=== PATIENT | female | born 1965 | race Caucasian/White ===

== ENCOUNTER 2016-04-05 19:16 | Emergency (ER) | payer OTHER ==
[~2016-04-05] VITALS: Ht 154.9 cm; Wt 94.6 kg
[~2016-04-05 19:16] MED LIST: AMBIEN10 MG PO; ATIVAN0.5 MG PO; BACTRIM,SEPT1 TABLET PO; BUSPAR10 MG PO; BUSPAR5 MG PO; CYMBALTA30 MG PO; CYMBALTA60 MG PO; FEOSOL325 MG PO; FLEXERIL10 MG PO; FUROSEMIDE20 MG PO; HYCODAN SYRUP480 ML PO; KEFLEX500 MG PO; KLOR-CON SPRINK8 MEQ PO; LASIX20 MG PO; LEVOTHYROXINE50 MCG PO; METAXALONE800 MG PO; NAPROSYN500 MG PO; NYAMYC60 GM TP; OPANA ER10 MG PO; OPANA ER20 MG PO; OPANA ER40 MG PO; OXYCODONE HCL20 M1 PO; OXYCONTIN20 MG PO; PANTOPRAZOLE SO40 MG PO; POTASSIUM-9999 MG PO; PREDNISONE20 MG PO; REQUIP0.25 MG PO; ROXICODONE30 MG PO; SUCRALFATE1 GM PO; SYNTHROID25 MCG PO; SYNTHROID50 MCG PO; TOPAMAX100 MG PO; VENTOLIN HFA18 GM IH; VITAMIN B-6100 MG PO; VITAMIN B122500 MCG PO; WOMEN'S DAILY1 EAC1 PO; ZITHROMAX Z-PA250 MG PO
[2016-04-05] MEDS ORDERED: NARCAN4 MG NS (22:53)
[2016-04-05 22:59] VITALS: BP 110/65
== END 2016-04-05 23:02 | disposition home or self-care (01) ==
LOC: EME → EDBD 19:16 → EME 19:16
DX: F11.10 Opioid abuse, uncomplicated (principal); T40.601A Poisoning by unspecified narcotics, accidental (unintentional), initial encounter; M79.89 Other specified soft tissue disorders; G89.29 Other chronic pain; Z79.891 Long term (current) use of opiate analgesic; F17.200 Nicotine dependence, unspecified, uncomplicated
CPT/HCPCS: 99281; 99284; J2310

== ENCOUNTER 2016-10-31 16:52 | Emergency (ER) | payer OTHER ==
[~2016-10-31] VITALS: Ht 154.9 cm; Wt 85.5 kg
[~2016-10-31 16:52] MED LIST changes: +NARCAN4 MG NS
[2016-10-31 17:29] VITALS: BP 164/90
== END 2016-10-31 17:29 | disposition home or self-care (01) ==
LOC: EME 16:52
DX: R40.0 Somnolence (principal); T42.6X1A Poisoning by other antiepileptic and sedative-hypnotic drugs, accidental (unintentional), initial encounter; G89.29 Other chronic pain; M79.606 Pain in leg, unspecified; Z98.84 Bariatric surgery status; Z79.891 Long term (current) use of opiate analgesic; F17.200 Nicotine dependence, unspecified, uncomplicated
CPT/HCPCS: 99281; 99284

== ENCOUNTER 2016-11-04 08:07 | Emergency (ER) | payer OTHER ==
[~2016-11-04] VITALS: Ht 154.9 cm; Wt 80.0 kg
[2016-11-04 08:32] LABS: HEMATOCRIT 41.1 % (36.0-46.0); MCH 30.1 PG (29.0-34.0); MCHC 33.3 G/DL (30.0-36.0); MCV 90.3 FL (83-99); PLATELET COUNT 252 K/uL (156-360); RBC DIS.WIDTH-CV 13.4 % (11.8-14.6); RBC DIS.WIDTH-SD 43.8 % (39-53); RED BLOOD COUNT 4.55 M/uL (3.80-5.20); WHITE BLOOD COUNT 8.7 K/uL (4.1-10.2)
[2016-11-04 08:45] LABS: CHLORIDE 108 mEq/L (99-109); POTASSIUM 3.1 mEq/L (3.7-5.4); SODIUM 143 mEq/L (136-147)
[2016-11-04 08:47] LABS: GLUCOSE 95 mg/dL (70-99)
[2016-11-04 08:48] LABS: ANION GAP 13 MEQ/L (2-14)
[2016-11-04 08:49] LABS: TOTAL BILIRUBIN 0.4 mg/dL (0.0-1.0)
[2016-11-04 08:50] LABS: ALKALINE PHOSPHATASE 105 IU/L (3-129)
[2016-11-04 08:51] LABS: GFR ESTIMATE (CALCULATED) > 59 mL/min/
[2016-11-04 08:52] LABS: UREA NITROGEN (BUN) 5 mg/dL (9-23)
[2016-11-04 09:00] LABS: QUANTITATIVE HCG < 4.0 MIU/ML
[2016-11-04 10:38] VITALS: BP 147/89
== END 2016-11-04 10:40 | disposition left against medical advice (07) ==
LOC: EME 08:07
DX: R11.2 Nausea with vomiting, unspecified (principal); G89.4 Chronic pain syndrome; Z98.84 Bariatric surgery status; F17.200 Nicotine dependence, unspecified, uncomplicated; Z87.19 Personal history of other diseases of the digestive system; Z88.8 Allergy status to other drugs, medicaments and biological substances
CPT/HCPCS: 80053; 81003; 84702; 85027; 99281; 99284; J2405

== ENCOUNTER → 2017-02-17 | Outpatient (CLI) | payer OTHER | END | disposition home or self-care (01) | LOC: RAD 12:37 | DX: M46.94 Unspecified inflammatory spondylopathy, thoracic region (principal); M41.85 Other forms of scoliosis, thoracolumbar region; M51.24 Other intervertebral disc displacement, thoracic region; M47.898 Other spondylosis, sacral and sacrococcygeal region; Z98.1 Arthrodesis status; M43.8X9 Other specified deforming dorsopathies, site unspecified | CPT/HCPCS: 72128; 72131 ==

== ENCOUNTER → 2017-02-17 | Outpatient (CLI) | payer OTHER | END | disposition home or self-care (01) | LOC: NUC 11:00 | DX: Z01.810 Encounter for preprocedural cardiovascular examination (principal); I27.20 Pulmonary hypertension, unspecified; I05.1 Rheumatic mitral insufficiency; I07.1 Rheumatic tricuspid insufficiency; I50.30 Unspecified diastolic (congestive) heart failure; I86.8 Varicose veins of other specified sites; R94.39 Abnormal result of other cardiovascular function study | CPT/HCPCS: 78452; 93017; 93306; A9500; J2785 ==

== ENCOUNTER 2017-03-05 22:08 | Emergency (ER) | payer OTHER ==
[~2017-03-05] VITALS: Ht 165.1 cm; Wt 72.8 kg
[2017-03-06 01:47] LABS: BASOPHIL (%) 0.1 % (0-1); EOSINOPHIL (%) 1.2 % (0-5); EOSINOPHIL COUNT 0.1 K/uL (0-0.3); IMMATURE GRANULOCYTE (%) 0.4 % (0.0-0.7); LYMPHOCYTE (%) 14.6 % (15-42); LYMPHOCYTE COUNT 1.2 K/uL (1.0-2.8); MCHC 33.3 G/DL (30.0-36.0); MCV 89.9 FL (83-99); MONOCYTE COUNT 0.7 K/uL (0-0.8); NEUTROPHIL (%) 74.7 % (45-76); PLATELET COUNT 290 K/uL (156-360); RBC DIS.WIDTH-CV 14.8 % (11.8-14.6); RBC DIS.WIDTH-SD 48.9 % (39-53); RED BLOOD COUNT 2.67 M/uL (3.80-5.20)
[2017-03-06 01:57] LABS: ALBUMIN 3.3 g/dL (3.2-4.8)
[2017-03-06 01:58] LABS: CHLORIDE 92 mEq/L (99-109); POTASSIUM 2.5 mEq/L (3.7-5.4); SODIUM 136 mEq/L (136-147)
[2017-03-06 02:00] LABS: GLUCOSE 134 mg/dL (70-99); TOTAL PROTEIN 6.4 g/dL (6.4-8.3)
[2017-03-06 02:02] LABS: TOTAL BILIRUBIN 0.4 mg/dL (0.0-1.0)
[2017-03-06 02:03] LABS: SERUM ETHYL ALCOHOL < 10 mg/dL
[2017-03-06 02:04] LABS: ALKALINE PHOSPHATASE 155 IU/L (3-129); CREATININE 0.6 mg/dL (0.6-1.3); GFR ESTIMATE (CALCULATED) > 59 mL/min/
[2017-03-06 02:05] LABS: AST (GOT) 38 IU/L (2-34)
[2017-03-06 02:06] LABS: UREA NITROGEN (BUN) 4 mg/dL (9-23)
[2017-03-06 02:07] LABS: SALICYLATE < 5.0 MG/DL (15-30)
[2017-03-06 02:08] LABS: ACETAMINOPHEN (TYLENOL) < 10 mcg/mL (10-30); ALT (GPT) 24 IU/L (3-49)
[2017-03-06 05:18] VITALS: BP 110/86
[2017-03-06 05:34] VITALS: BP 126/78
[2017-03-06 06:35] VITALS: BP 123/85
[2017-03-06 07:32] VITALS: BP 115/82
[2017-03-06 08:38] VITALS: BP 118/82
== END 2017-03-06 08:57 | disposition home or self-care (01) ==
LOC: EME 22:08
PROVIDERS: Emergency Medicine
PROC: 30233N1 Transfusion of Nonautologous Red Blood Cells into Peripheral Vein, Percutaneous Approach (ICD-10-PCS; principal; 2017-03-06)
DX: F11.20 Opioid dependence, uncomplicated (principal); E87.6 Hypokalemia; D53.9 Nutritional anemia, unspecified; K21.9 Gastro-esophageal reflux disease without esophagitis; F41.9 Anxiety disorder, unspecified; F17.200 Nicotine dependence, unspecified, uncomplicated; Z98.84 Bariatric surgery status; Z88.5 Allergy status to narcotic agent; Z88.8 Allergy status to other drugs, medicaments and biological substances
CPT/HCPCS: 80053; 84132 91; 85025; 86850; 86900; 86901; 86920; 99281; 99285; G0480; P9016

== ENCOUNTER 2017-03-17 14:15 | Inpatient (IN) | payer OTHER ==
[~2017-03-17] VITALS: Ht 165.1 cm; Wt 81.0 kg
[2017-03-17] MEDS ORDERED: FLEXERIL10 MG PO (15:17)
[2017-03-17] MEDS ORDERED: FERROUS SULFAT325 MG PO (15:18)
[2017-03-17] MEDS ORDERED: LASIX40 MG PO (15:19)
[2017-03-17] MEDS ORDERED: OXYCODONE HCL15 MG PO (15:20)
[2017-03-17] MEDS ORDERED: ROXICODONE30 MG PO (15:22)
[2017-03-17] MEDS ORDERED: PROTONIX40 MG PO (15:23)
[2017-03-17] MEDS ORDERED: NYAMYC60 GM TP (15:25)
[2017-03-17 15:26] VITALS: BP 137/85
[2017-03-17 16:37] VITALS: BP 137/85
[2017-03-17] MEDS ORDERED: LYRICA50 MG PO (20:15)
[2017-03-18 06:20] VITALS: BP 133/75
[2017-03-18 06:40] LABS: ALBUMIN 2.8 G/DL (3.2-4.8); ALKALINE PHOSPHATASE 154 IU/L (3-129); ALT (GPT) 13 IU/L (3-49); AST (GOT) 24 IU/L (2-34); CHLORIDE 99 MEQ/L (99-109); CREATININE 0.5 MG/DL (0.6-1.3); GFR ESTIMATE (CALCULATED) > 59 mL/min/; GLUCOSE 101 mg/dL (70-99); POTASSIUM 3.6 MEQ/L (3.7-5.4); SODIUM 139 MEQ/L (136-147); TOTAL BILIRUBIN 0.4 MG/DL (0.0-1.0); TOTAL PROTEIN 5.5 G/DL (6.4-8.3); UREA NITROGEN (BUN) 7 mg/dL (9-23)
[2017-03-18 07:13] LABS: HEMATOCRIT 24.8 % (36.0-46.0); HEMOGLOBIN 7.9 G/DL (11.9-15.5); MCH 30.4 PG (29.0-34.0); MCHC 31.9 G/DL (30.0-36.0); PLATELET COUNT 287 K/uL (156-360); RBC DIS.WIDTH-CV 18.2 % (11.8-14.6); RBC DIS.WIDTH-SD 62.9 % (39-53); WHITE BLOOD COUNT 7.4 K/uL (4.1-10.2)
[2017-03-18 07:14] LABS: MCV 95.4 FL (83-99)
[2017-03-18 15:45] VITALS: BP 120/90
[2017-03-19 06:05] VITALS: BP 110/67
[2017-03-19 15:42] VITALS: BP 105/62
[2017-03-20 04:59] VITALS: BP 146/80
[2017-03-20 06:50] LABS: BASOPHIL (%) 0.2 % (0-1); EOSINOPHIL (%) 2.9 % (0-5); EOSINOPHIL COUNT 0.2 K/uL (0-0.3); HEMATOCRIT 28.3 % (36.0-46.0); HEMOGLOBIN 8.6 G/DL (11.9-15.5); IMMATURE GRANULOCYTE (%) 0.3 % (0.0-0.7); LYMPHOCYTE (%) 19.3 % (15-42); LYMPHOCYTE COUNT 1.1 K/uL (1.0-2.8); MCH 30.3 PG (29.0-34.0); MCHC 30.4 G/DL (30.0-36.0); MONOCYTE (%) 7.8 % (3-12); MONOCYTE COUNT 0.5 K/uL (0-0.8); NEUTROPHIL (%) 69.5 % (45-76); RBC DIS.WIDTH-CV 17.5 % (11.8-14.6); RBC DIS.WIDTH-SD 63.3 % (39-53); RED BLOOD COUNT 2.84 M/uL (3.80-5.20); WHITE BLOOD COUNT 5.8 K/uL (4.1-10.2)
[2017-03-20 06:51] LABS: MCV 99.6 FL (83-99)
[2017-03-20 07:05] LABS: ALBUMIN 2.8 G/DL (3.2-4.8); ALKALINE PHOSPHATASE 151 IU/L (3-129); ALT (GPT) 13 IU/L (3-49); AST (GOT) 21 IU/L (2-34); CHLORIDE 103 MEQ/L (99-109); CREATININE 0.5 MG/DL (0.6-1.3); GFR ESTIMATE (CALCULATED) > 59 mL/min/; GLUCOSE 100 mg/dL (70-99); SODIUM 139 MEQ/L (136-147); TOTAL BILIRUBIN 0.4 MG/DL (0.0-1.0); TOTAL PROTEIN 5.3 G/DL (6.4-8.3); UREA NITROGEN (BUN) 6 mg/dL (9-23)
[2017-03-20 07:10] LABS: POTASSIUM 4.4 MEQ/L (3.7-5.4)
[2017-03-20 07:49] LABS: PLAT.SUFFICIENCY ADEQUATE; PLATELET COUNT 262 K/uL (156-360)
[2017-03-20 15:05] VITALS: BP 118/74
[2017-03-21 05:37] LABS: BASOPHIL (%) 0.2 % (0-1); EOSINOPHIL (%) 3.7 % (0-5); EOSINOPHIL COUNT 0.2 K/uL (0-0.3); HEMATOCRIT 26.1 % (36.0-46.0); HEMOGLOBIN 8.3 G/DL (11.9-15.5); IMMATURE GRANULOCYTE (%) 0.3 % (0.0-0.7); LYMPHOCYTE COUNT 1.6 K/uL (1.0-2.8); MCHC 31.8 G/DL (30.0-36.0); MCV 97.4 FL (83-99); MONOCYTE (%) 9.7 % (3-12); MONOCYTE COUNT 0.6 K/uL (0-0.8); NEUTROPHIL (%) 60.1 % (45-76); NEUTROPHIL COUNT 3.6 K/uL (1.8-6.4); PLATELET COUNT 230 K/uL (156-360); RBC DIS.WIDTH-CV 17.2 % (11.8-14.6); RBC DIS.WIDTH-SD 60.9 % (39-53); RED BLOOD COUNT 2.68 M/uL (3.80-5.20)
[2017-03-21 05:48] VITALS: BP 113/70
[2017-03-21 06:25] LABS: ALBUMIN 2.8 G/DL (3.2-4.8); ALKALINE PHOSPHATASE 148 IU/L (3-129); ALT (GPT) 11 IU/L (3-49); AST (GOT) 18 IU/L (2-34); CHLORIDE 104 MEQ/L (99-109); CREATININE 0.5 MG/DL (0.6-1.3); GFR ESTIMATE (CALCULATED) > 59 mL/min/; GLUCOSE 89 mg/dL (70-99); POTASSIUM 4.1 MEQ/L (3.7-5.4); SODIUM 139 MEQ/L (136-147); TOTAL BILIRUBIN 0.3 MG/DL (0.0-1.0); TOTAL PROTEIN 5.5 G/DL (6.4-8.3); UREA NITROGEN (BUN) 6 mg/dL (9-23)
[2017-03-21 15:39] VITALS: BP 95/62
[2017-03-22 05:33] VITALS: BP 131/65
[2017-03-22 15:48] VITALS: BP 125/69
[2017-03-23 05:34] VITALS: BP 126/81
[2017-03-23 15:53] VITALS: BP 142/87
[2017-03-24 05:43] VITALS: BP 150/84
[2017-03-24 15:26] VITALS: BP 122/81
[2017-03-25 05:55] VITALS: BP 107/58
[2017-03-25 15:40] VITALS: BP 83/49
[2017-03-25 16:19] VITALS: BP 104/58
[2017-03-26 06:42] VITALS: BP 117/59
[2017-03-26 16:01] VITALS: BP 108/73
[2017-03-27 07:06] VITALS: BP 121/76
[2017-03-27 15:54] VITALS: BP 83/59
[2017-03-28 07:14] VITALS: BP 99/66
[2017-03-28 16:17] VITALS: BP 91/55
[2017-03-29] MEDS ORDERED: OXYCODONE HCL15 MG PO (08:46)
[2017-03-29] MEDS ORDERED: MORPHINE SULFAT15 M1 PO (08:46)
[2017-03-29 15:39] VITALS: BP 91/57
[2017-03-29 18:57] LABS: HEMOGLOBIN 8.2 G/DL (11.9-15.5); MCH 29.6 PG (29.0-34.0); MCHC 30.4 G/DL (30.0-36.0); MCV 97.5 FL (83-99); PLATELET COUNT 218 K/uL (156-360); RBC DIS.WIDTH-CV 16.1 % (11.8-14.6); RED BLOOD COUNT 2.77 M/uL (3.80-5.20); WHITE BLOOD COUNT 4.5 K/uL (4.1-10.2)
[2017-03-29 19:20] LABS: ALKALINE PHOSPHATASE 133 IU/L (3-129); ALT (GPT) 8 IU/L (3-49); AST (GOT) 14 IU/L (2-34); CHLORIDE 102 MEQ/L (99-109); CREATININE 0.6 MG/DL (0.6-1.3); GFR ESTIMATE (CALCULATED) > 59 mL/min/; GLUCOSE 98 mg/dL (70-99); POTASSIUM 4.2 MEQ/L (3.7-5.4); SODIUM 136 MEQ/L (136-147); TOTAL BILIRUBIN 0.2 MG/DL (0.0-1.0); TOTAL PROTEIN 5.7 G/DL (6.4-8.3); UREA NITROGEN (BUN) 9 mg/dL (9-23)
[2017-03-30 06:20] VITALS: BP 139/84
[2017-03-30] MEDS ORDERED: FUROSEMIDE20 MG PO (08:20)
[2017-03-30] MEDS ORDERED: FLEXERIL10 MG PO (08:20)
[2017-03-30] MEDS ORDERED: K-DUR20 MEQ PO (08:20)
[2017-03-30] MEDS ORDERED: REQUIP0.25 MG PO (08:20)
[2017-03-30] MEDS ORDERED: SENNA PLUS TAB1 EACH PO (08:20)
[2017-03-30 15:45] VITALS: BP 120/68
== END 2017-03-30 18:15 | DRG 945 ==
LOC: 3WEST 14:15 → ENPENDDIS 04-02
PROVIDERS: Physical Medicine & Rehabilitation Pain Medicine; Psychiatry & Neurology Neurology
PROC: F07M0ZZ Range of Motion and Joint Mobility Treatment of Musculoskeletal System - Whole Body (ICD-10-PCS; principal; 2017-03-17)
DX: R53.1 Weakness (principal); R26.2 Difficulty in walking, not elsewhere classified; G89.18 Other acute postprocedural pain; Z98.1 Arthrodesis status; D62 Acute posthemorrhagic anemia; K59.00 Constipation, unspecified; G89.4 Chronic pain syndrome; M54.5 Low back pain; E03.9 Hypothyroidism, unspecified; D50.9 Iron deficiency anemia, unspecified; G25.81 Restless legs syndrome; I10 Essential (primary) hypertension; K21.9 Gastro-esophageal reflux disease without esophagitis; F41.9 Anxiety disorder, unspecified; E66.9 Obesity, unspecified; F17.200 Nicotine dependence, unspecified, uncomplicated; Z68.30 Body mass index [BMI] 30.0-30.9, adult; Z87.11 Personal history of peptic ulcer disease; Z98.84 Bariatric surgery status; Z79.891 Long term (current) use of opiate analgesic
CPT/HCPCS: 80053; 85025; 85027; 97110 GO; 97530 GP

== ENCOUNTER 2017-04-17 12:45 | Emergency (ER) | payer OTHER ==
[~2017-04-17] VITALS: Ht 165.1 cm; Wt 78.7 kg
[~2017-04-17 12:45] MED LIST changes: +FERROUS SULFAT325 MG PO; +K-DUR20 MEQ PO; +LASIX40 MG PO; +LYRICA50 MG PO; +MORPHINE SULFAT15 M1 PO; +OXYCODONE HCL15 MG PO; +PROTONIX40 MG PO; +SENNA PLUS TAB1 EACH PO
[2017-04-17 20:43] VITALS: BP 108/66
== END 2017-04-17 20:45 | disposition home or self-care (01) ==
LOC: EME 12:45
DX: S00.81XA Abrasion of other part of head, initial encounter (principal); W18.30XA Fall on same level, unspecified, initial encounter; Y92.129 Unspecified place in nursing home as the place of occurrence of the external cause; T40.601A Poisoning by unspecified narcotics, accidental (unintentional), initial encounter; Z87.19 Personal history of other diseases of the digestive system; F41.9 Anxiety disorder, unspecified; K21.9 Gastro-esophageal reflux disease without esophagitis; F17.200 Nicotine dependence, unspecified, uncomplicated; Z88.8 Allergy status to other drugs, medicaments and biological substances
CPT/HCPCS: 99281; 99284

== ENCOUNTER 2017-06-04 19:56 | Emergency (ER) | payer OTHER ==
[~2017-06-04] VITALS: Ht 167.6 cm; Wt 78.5 kg
[2017-06-04 20:14] LABS: BASOPHIL (%) 0.3 % (0-1); EOSINOPHIL COUNT 0.1 K/uL (0-0.3); HEMOGLOBIN 15.3 G/DL (11.9-15.5); IMMATURE GRANULOCYTE (%) 0.3 % (0.0-0.7); LYMPHOCYTE (%) 20.7 % (15-42); LYMPHOCYTE COUNT 1.5 K/uL (1.0-2.8); MCH 29.3 PG (29.0-34.0); MCHC 32.6 G/DL (30.0-36.0); MCV 89.9 FL (83-99); MONOCYTE (%) 3.3 % (3-12); MONOCYTE COUNT 0.2 K/uL (0-0.8); NEUTROPHIL (%) 74.4 % (45-76); NEUTROPHIL COUNT 5.4 K/uL (1.8-6.4); PLATELET COUNT 241 K/uL (156-360); RBC DIS.WIDTH-CV 15.9 % (11.8-14.6); RBC DIS.WIDTH-SD 51.8 % (39-53); RED BLOOD COUNT 5.23 M/uL (3.80-5.20); WHITE BLOOD COUNT 7.3 K/uL (4.1-10.2)
[2017-06-04 20:21] LABS: ALBUMIN 3.9 g/dL (3.2-4.8); CHLORIDE 108 mEq/L (99-109); POTASSIUM 4.2 mEq/L (3.7-5.4); SODIUM 138 mEq/L (136-147)
[2017-06-04 20:23] LABS: GLUCOSE 117 mg/dL (70-99); TOTAL PROTEIN 6.8 g/dL (6.4-8.3)
[2017-06-04 20:25] LABS: TOTAL BILIRUBIN 0.4 mg/dL (0.0-1.0)
[2017-06-04 20:27] LABS: ALKALINE PHOSPHATASE 175 IU/L (3-129); CREATININE 0.7 mg/dL (0.6-1.3); GFR ESTIMATE (CALCULATED) > 59 mL/min/
[2017-06-04 20:28] LABS: UREA NITROGEN (BUN) 8 mg/dL (9-23)
[2017-06-04 20:29] LABS: AST (GOT) 35 IU/L (2-34)
[2017-06-04 20:30] LABS: ALT (GPT) 25 IU/L (3-49); LIPASE 7 U/L (1.0-51.0)
[2017-06-05 02:35] VITALS: BP 153/107
== END 2017-06-05 02:39 | disposition short-term general hospital (02) ==
LOC: EME → EDBD 19:56 → EME 06-05 02:39
PROVIDERS: Emergency Medicine
DX: K63.1 Perforation of intestine (nontraumatic) (principal); K80.20 Calculus of gallbladder without cholecystitis without obstruction; Z98.84 Bariatric surgery status; K21.9 Gastro-esophageal reflux disease without esophagitis; F41.9 Anxiety disorder, unspecified; E03.9 Hypothyroidism, unspecified; F17.200 Nicotine dependence, unspecified, uncomplicated; Z88.8 Allergy status to other drugs, medicaments and biological substances
CPT/HCPCS: 74177; 80053; 81003; 83690; 85025; 87040; 99281; 99285; J1630; J2543; J2765; J3010; J7030; J7050

== ENCOUNTER 2017-06-16 09:43 | Emergency (ER) | payer OTHER ==
[~2017-06-16] VITALS: Ht 165.1 cm; Wt 70.2 kg
[2017-06-16 10:43] LABS: HEMATOCRIT 39.1 % (36.0-46.0); MCV 87.9 FL (83-99); PLATELET COUNT 290 K/uL (156-360); RBC DIS.WIDTH-CV 16.1 % (11.8-14.6); RBC DIS.WIDTH-SD 52.6 % (39-53); RED BLOOD COUNT 4.45 M/uL (3.80-5.20); WHITE BLOOD COUNT 9.3 K/uL (4.1-10.2)
[2017-06-16 10:45] LABS: HEMOGLOBIN 12.9 G/DL (11.9-15.5)
[2017-06-16 10:53] LABS: ALBUMIN 3.1 g/dL (3.2-4.8); CHLORIDE 109 mEq/L (99-109); SODIUM 141 mEq/L (136-147)
[2017-06-16 10:55] LABS: GLUCOSE 98 mg/dL (70-99); TOTAL PROTEIN 6.1 g/dL (6.4-8.3)
[2017-06-16 10:57] LABS: TOTAL BILIRUBIN 0.4 mg/dL (0.0-1.0)
[2017-06-16 10:59] LABS: ALKALINE PHOSPHATASE 127 IU/L (3-129); CREATININE 0.7 mg/dL (0.6-1.3); GFR ESTIMATE (CALCULATED) > 59 mL/min/
[2017-06-16 11:00] LABS: UREA NITROGEN (BUN) 8 mg/dL (9-23)
[2017-06-16 11:01] LABS: AST (GOT) 53 IU/L (2-34)
[2017-06-16 11:02] LABS: ALT (GPT) 25 IU/L (3-49)
[2017-06-16 11:44] LABS: APPEARANCE CLEAR ((CLEAR)); BILIRUBIN SMALL; BLOOD NEGATIVE; COLOR YELLOW ((YELLOW)); GLUCOSE (STRIP) NEGATIVE; KETONES NEGATIVE; LEUKOCYTES NEGATIVE; NITRITE NEGATIVE; PROTEIN (STRIP) NEGATIVE; SPECIFIC GRAVITY 1.018 (1.000-1.030); UCUL ADDED? NO; UROBILINOGEN 0.2 MG/DL (0.2-1.0)
[2017-06-16 16:00] VITALS: BP 162/104
[2017-06-17] MEDS ORDERED: OMEPRAZOLE40 M1 PO (11:29)
== END 2017-06-16 18:36 | disposition home or self-care (01) ==
LOC: EME 09:43
PROVIDERS: Nurse Practitioner Family
DX: R10.84 Generalized abdominal pain (principal); R10.2 Pelvic and perineal pain; Z98.890 Other specified postprocedural states; J90 Pleural effusion, not elsewhere classified; K80.20 Calculus of gallbladder without cholecystitis without obstruction; K76.0 Fatty (change of) liver, not elsewhere classified; M16.0 Bilateral primary osteoarthritis of hip; Z98.84 Bariatric surgery status; F17.200 Nicotine dependence, unspecified, uncomplicated
CPT/HCPCS: 74177; 80053; 81003; 83605; 85027; J2405; J3010; J7030

== ENCOUNTER 2017-06-17 09:50 | Emergency (ER) | payer OTHER ==
[~2017-06-17] VITALS: Ht 165.1 cm; Wt 72.2 kg
[2017-06-17 10:37] LABS: HEMATOCRIT 37.6 % (36.0-46.0); HEMOGLOBIN 12.3 G/DL (11.9-15.5); MCH 28.9 PG (29.0-34.0); MCHC 32.7 G/DL (30.0-36.0); MCV 88.3 FL (83-99); PLATELET COUNT 355 K/uL (156-360); RBC DIS.WIDTH-CV 16.2 % (11.8-14.6); RBC DIS.WIDTH-SD 52.4 % (39-53); RED BLOOD COUNT 4.26 M/uL (3.80-5.20); WHITE BLOOD COUNT 11.9 K/uL (4.1-10.2)
[2017-06-17 10:43] LABS: INTER. NORMALIZED RATIO 1.1
[2017-06-17 10:46] LABS: PTT 28.4 SEC (25-37)
[2017-06-17 10:49] LABS: ALBUMIN 3.3 g/dL (3.2-4.8); CHLORIDE 109 mEq/L (99-109); SODIUM 140 mEq/L (136-147)
[2017-06-17 10:52] LABS: GLUCOSE 99 mg/dL (70-99); TOTAL PROTEIN 6.2 g/dL (6.4-8.3)
[2017-06-17 10:54] LABS: TOTAL BILIRUBIN 0.4 mg/dL (0.0-1.0)
[2017-06-17 10:55] LABS: ALKALINE PHOSPHATASE 129 IU/L (3-129); CREATININE 0.8 mg/dL (0.6-1.3); GFR ESTIMATE (CALCULATED) > 59 mL/min/
[2017-06-17 10:56] LABS: UREA NITROGEN (BUN) 15 mg/dL (9-23)
[2017-06-17 10:57] LABS: AST (GOT) 37 IU/L (2-34)
[2017-06-17 10:58] LABS: ALT (GPT) 22 IU/L (3-49)
[2017-06-17 11:00] LABS: APPEARANCE CLEAR ((CLEAR)); BILIRUBIN SMALL; BLOOD SMALL; COLOR YELLOW ((YELLOW)); GLUCOSE (STRIP) NEGATIVE; KETONES NEGATIVE; LEUKOCYTES NEGATIVE; NITRITE NEGATIVE; PROTEIN (STRIP) 30; SPECIFIC GRAVITY 1.032 (1.000-1.030); UROBILINOGEN 0.2 MG/DL (0.2-1.0)
[2017-06-17 11:12] LABS: BACTERIA RARE /HPF; EPITHELIAL CELLS RARE /HPF; MUCUS TRACE /LPF; RED BLOOD CELLS 0-5 /HPF (0-5); UCUL ADDED? NO; WHITE BLOOD CELLS 0-5 /HPF (0-5)
[2017-06-17] MEDS ORDERED: OMEPRAZOLE40 M1 PO (11:29)
[2017-06-17 13:30] VITALS: BP 178/107
== END 2017-06-17 14:48 | disposition home or self-care (01) ==
LOC: EME 09:50
PROVIDERS: Physician Assistant
DX: K92.1 Melena (principal); K21.9 Gastro-esophageal reflux disease without esophagitis; F41.9 Anxiety disorder, unspecified; F17.200 Nicotine dependence, unspecified, uncomplicated; Z98.890 Other specified postprocedural states; Z98.84 Bariatric surgery status; Z87.19 Personal history of other diseases of the digestive system; Z88.5 Allergy status to narcotic agent; Z88.8 Allergy status to other drugs, medicaments and biological substances
CPT/HCPCS: 80053; 81003; 85027; 85610; 85730; 86850; 86900; 86901; 99281; 99284

== ENCOUNTER 2017-09-26 20:48 | Inpatient (IN) | payer OTHER ==
[~2017-09-26] VITALS: Ht 175.3 cm; Wt 81.1 kg
[~2017-09-26 20:48] MED LIST changes: +DAILY VITE1 EAC1 PO; +OMEPRAZOLE40 M1 PO; -WOMEN'S DAILY1 EAC1 PO
[2017-09-26 21:33] LABS: HEMATOCRIT 28.6 % (36.0-46.0); HEMOGLOBIN 9.2 G/DL (11.9-15.5); MCH 29.7 PG (29.0-34.0); MCHC 32.2 G/DL (30.0-36.0); MCV 92.3 FL (83-99); PLATELET COUNT 191 K/uL (156-360); RBC DIS.WIDTH-CV 14.5 % (11.8-14.6); RBC DIS.WIDTH-SD 48.2 % (39-53); WHITE BLOOD COUNT 8.7 K/uL (4.1-10.2)
[2017-09-26 21:55] LABS: ALBUMIN 3.7 g/dL (3.2-4.8); CHLORIDE 115 mEq/L (99-109); POTASSIUM 3.6 mEq/L (3.7-5.4); QUANTITATIVE HCG < 4.0 MIU/ML; SODIUM 145 mEq/L (136-147)
[2017-09-26 21:57] LABS: GLUCOSE 96 mg/dL (70-99); TOTAL PROTEIN 6.4 g/dL (6.4-8.3)
[2017-09-26 21:59] LABS: TOTAL BILIRUBIN 0.2 mg/dL (0.0-1.0)
[2017-09-26 22:01] LABS: ALKALINE PHOSPHATASE 106 IU/L (3-129); CREATININE 0.9 mg/dL (0.6-1.3); GFR ESTIMATE (CALCULATED) > 59 mL/min/
[2017-09-26 22:02] LABS: UREA NITROGEN (BUN) 10 mg/dL (9-23)
[2017-09-26 22:03] LABS: AST (GOT) 20 IU/L (2-34)
[2017-09-26 22:04] LABS: ALT (GPT) 16 IU/L (3-49); LIPASE 15 U/L (1.0-51.0)
[2017-09-27 04:27] VITALS: BP 169/70
[2017-09-27 05:02] LABS: HEMATOCRIT 27.8 % (36.0-46.0); HEMOGLOBIN 8.5 G/DL (11.9-15.5); MCH 28.5 PG (29.0-34.0); MCHC 30.6 G/DL (30.0-36.0); MCV 93.3 FL (83-99); PLATELET COUNT 155 K/uL (156-360); RBC DIS.WIDTH-CV 14.3 % (11.8-14.6); RBC DIS.WIDTH-SD 48.8 % (39-53); RED BLOOD COUNT 2.98 M/uL (3.80-5.20); WHITE BLOOD COUNT 6.4 K/uL (4.1-10.2)
[2017-09-27 05:53] LABS: IRON 34 MCG/DL (35-150); TRANSFERRIN (TIBC) 214.2 mg/dL (215-380); TRANSFERRIN SATUR. 16 % (20-55)
[2017-09-27 06:42] LABS: APPEARANCE CLEAR ((CLEAR)); BILIRUBIN NEGATIVE; BLOOD NEGATIVE; COLOR YELLOW ((YELLOW)); GLUCOSE (STRIP) NEGATIVE; KETONES NEGATIVE; LEUKOCYTES NEGATIVE; NITRITE NEGATIVE; PROTEIN (STRIP) NEGATIVE; SPECIFIC GRAVITY 1.045 (1.000-1.030); UCUL ADDED? NO; UROBILINOGEN 0.2 MG/DL (0.2-1.0)
[2017-09-27 07:15] VITALS: BP 154/84
[2017-09-27 08:48] LABS: FERRITIN 62 NG/ML (10-291)
[2017-09-27 08:52] LABS: FOLIC ACID (FOLATE) 3.2 NG/ML (5.0-22.0)
[2017-09-27 14:21] LABS: PTT 24.5 SEC (25-37)
[2017-09-27 15:36] VITALS: BP 156/84
[2017-09-27 15:49] LABS: HEMOGLOBIN 8.5 G/DL (11.9-15.5); MCV 91.5 FL (83-99)
[2017-09-27 18:50] VITALS: BP 152/82
[2017-09-27 23:46] VITALS: BP 123/79
[2017-09-28] VITALS (7 sets, daily range): BP systolic 158–182; BP diastolic 76–101
[2017-09-28 00:38] LABS: HEMATOCRIT 26.2 % (36.0-46.0); HEMOGLOBIN 8.4 G/DL (11.9-15.5); MCV 90.7 FL (83-99)
[2017-09-28 06:44] LABS: HEMATOCRIT 29.1 % (36.0-46.0); HEMOGLOBIN 9.3 G/DL (11.9-15.5); MCH 29.2 PG (29.0-34.0); MCV 91.2 FL (83-99); PLATELET COUNT 133 K/uL (156-360); RBC DIS.WIDTH-CV 13.8 % (11.8-14.6); RBC DIS.WIDTH-SD 46.7 % (39-53); RED BLOOD COUNT 3.19 M/uL (3.80-5.20); WHITE BLOOD COUNT 4.7 K/uL (4.1-10.2)
[2017-09-28 08:03] LABS: ALBUMIN 3.1 G/DL (3.2-4.8); ALKALINE PHOSPHATASE 81 IU/L (3-129); ALT (GPT) 8 IU/L (3-49); AST (GOT) 13 IU/L (2-34); CHLORIDE 109 MEQ/L (99-109); CREATININE 0.6 MG/DL (0.6-1.3); GFR ESTIMATE (CALCULATED) > 59 mL/min/; GLUCOSE 91 mg/dL (70-99); POTASSIUM 3.8 MEQ/L (3.7-5.4); SODIUM 141 MEQ/L (136-147); TOTAL BILIRUBIN 0.3 MG/DL (0.0-1.0); UREA NITROGEN (BUN) 7 mg/dL (9-23)
[2017-09-28 20:25] LABS: MCH 28.5 PG (29.0-34.0); MCHC 31.3 G/DL (30.0-36.0); MCV 91.2 FL (83-99); PLATELET COUNT 144 K/uL (156-360); RBC DIS.WIDTH-SD 46.5 % (39-53); RED BLOOD COUNT 3.51 M/uL (3.80-5.20); WHITE BLOOD COUNT 4.5 K/uL (4.1-10.2)
[2017-09-29 07:43] VITALS: BP 161/85
[2017-09-29 08:26] LABS: HEMATOCRIT 29.8 % (36.0-46.0); HEMOGLOBIN 9.5 G/DL (11.9-15.5); MCH 28.7 PG (29.0-34.0); MCHC 31.9 G/DL (30.0-36.0); PLATELET COUNT 151 K/uL (156-360); RBC DIS.WIDTH-CV 13.9 % (11.8-14.6); RED BLOOD COUNT 3.31 M/uL (3.80-5.20); WHITE BLOOD COUNT 4.4 K/uL (4.1-10.2)
[2017-09-29] MEDS ORDERED: OXYCODONE HCL30 MG PO (10:18)
[2017-09-29] MEDS ORDERED: SENNA PLUS TAB1 EACH PO (10:20)
[2017-09-29] MEDS ORDERED: AMBIEN10 MG PO (11:44)
[2017-09-29] MEDS ORDERED: OXYMORPHONE HCL40 MG PO (11:45)
[2017-09-29 15:00] VITALS: BP 140/78
[2017-09-29 19:50] LABS: HEMATOCRIT 32.7 % (36.0-46.0); HEMOGLOBIN 10.7 G/DL (11.9-15.5); MCH 29.3 PG (29.0-34.0); MCHC 32.7 G/DL (30.0-36.0); MCV 89.6 FL (83-99); PLATELET COUNT 176 K/uL (156-360); RBC DIS.WIDTH-CV 13.9 % (11.8-14.6); RBC DIS.WIDTH-SD 45.4 % (39-53); RED BLOOD COUNT 3.65 M/uL (3.80-5.20); WHITE BLOOD COUNT 4.8 K/uL (4.1-10.2)
[2017-09-30 00:10] VITALS: BP 130/69
[2017-09-30 06:00] LABS: BASOPHIL (%) 0.5 % (0-1); EOSINOPHIL COUNT 0.2 K/uL (0-0.3); HEMATOCRIT 29.1 % (36.0-46.0); HEMOGLOBIN 9.2 G/DL (11.9-15.5); LYMPHOCYTE (%) 37.2 % (15-42); LYMPHOCYTE COUNT 1.6 K/uL (1.0-2.8); MCH 28.6 PG (29.0-34.0); MCHC 31.6 G/DL (30.0-36.0); MCV 90.4 FL (83-99); MONOCYTE (%) 7.1 % (3-12); MONOCYTE COUNT 0.3 K/uL (0-0.8); NEUTROPHIL (%) 50.2 % (45-76); NEUTROPHIL COUNT 2.2 K/uL (1.8-6.4); PLATELET COUNT 174 K/uL (156-360); RBC DIS.WIDTH-SD 46.4 % (39-53); RED BLOOD COUNT 3.22 M/uL (3.80-5.20); WHITE BLOOD COUNT 4.4 K/uL (4.1-10.2)
[2017-09-30 06:38] LABS: ALKALINE PHOSPHATASE 81 IU/L (3-129); ALT (GPT) 9 IU/L (3-49); AST (GOT) 13 IU/L (2-34); CHLORIDE 111 MEQ/L (99-109); CREATININE 0.6 MG/DL (0.6-1.3); GFR ESTIMATE (CALCULATED) > 59 mL/min/; GLUCOSE 90 mg/dL (70-99); POTASSIUM 3.6 MEQ/L (3.7-5.4); SODIUM 143 MEQ/L (136-147); TOTAL PROTEIN 4.8 G/DL (6.4-8.3); UREA NITROGEN (BUN) 7 mg/dL (9-23)
[2017-09-30 06:49] LABS: TOTAL BILIRUBIN 0.2 MG/DL (0.0-1.0)
[2017-09-30 07:59] VITALS: BP 116/70
[2017-09-30 09:18] LABS: HEMATOCRIT 29.7 % (36.0-46.0); HEMOGLOBIN 9.5 G/DL (11.9-15.5); MCV 90.5 FL (83-99); PLATELET COUNT 164 K/uL (156-360); RBC DIS.WIDTH-CV 14.1 % (11.8-14.6); RBC DIS.WIDTH-SD 46.9 % (39-53); RED BLOOD COUNT 3.28 M/uL (3.80-5.20); WHITE BLOOD COUNT 4.3 K/uL (4.1-10.2)
[2017-09-30 13:05] VITALS: BP 131/75
[2017-09-30 16:19] VITALS: BP 121/76
[2017-09-30 19:15] VITALS: BP 132/65
[2017-09-30 20:00] LABS: HEMATOCRIT 31.2 % (36.0-46.0); HEMOGLOBIN 9.8 G/DL (11.9-15.5); MCH 28.6 PG (29.0-34.0); MCHC 31.4 G/DL (30.0-36.0); PLATELET COUNT 182 K/uL (156-360); RBC DIS.WIDTH-CV 14.3 % (11.8-14.6); RBC DIS.WIDTH-SD 47.2 % (39-53); RED BLOOD COUNT 3.43 M/uL (3.80-5.20); WHITE BLOOD COUNT 9.7 K/uL (4.1-10.2)
[2017-09-30 23:34] VITALS: BP 137/82
[2017-10-01 03:45] VITALS: BP 136/81
[2017-10-01 08:15] VITALS: BP 151/91
[2017-10-01 08:33] LABS: HEMATOCRIT 36.1 % (36.0-46.0); HEMOGLOBIN 11.1 G/DL (11.9-15.5); MCH 28.8 PG (29.0-34.0); MCHC 30.7 G/DL (30.0-36.0); MCV 93.8 FL (83-99); PLATELET COUNT 220 K/uL (156-360); RBC DIS.WIDTH-CV 14.6 % (11.8-14.6); RBC DIS.WIDTH-SD 48.7 % (39-53); RED BLOOD COUNT 3.85 M/uL (3.80-5.20); WHITE BLOOD COUNT 14.5 K/uL (4.1-10.2)
[2017-10-01 11:21] LABS: CHLORIDE 105 MEQ/L (99-109); CREATININE 0.7 MG/DL (0.6-1.3); GFR ESTIMATE (CALCULATED) > 59 mL/min/; POTASSIUM 3.8 MEQ/L (3.7-5.4); SODIUM 137 MEQ/L (136-147); UREA NITROGEN (BUN) 8 mg/dL (9-23)
[2017-10-01 11:24] LABS: GLUCOSE 137 mg/dL (70-99)
[2017-10-01 15:51] VITALS: BP 139/79
[2017-10-01 21:04] LABS: HEMOGLOBIN 11.3 G/DL (11.9-15.5); MCH 28.9 PG (29.0-34.0); MCHC 31.4 G/DL (30.0-36.0); MCV 92.1 FL (83-99); PLATELET COUNT 233 K/uL (156-360); RBC DIS.WIDTH-CV 14.6 % (11.8-14.6); RBC DIS.WIDTH-SD 48.5 % (39-53); RED BLOOD COUNT 3.91 M/uL (3.80-5.20); WHITE BLOOD COUNT 15.1 K/uL (4.1-10.2)
[2017-10-01 23:22] VITALS: BP 159/75
[2017-10-02 06:20] LABS: HEMATOCRIT 34.7 % (36.0-46.0); HEMOGLOBIN 10.9 G/DL (11.9-15.5); MCH 29.1 PG (29.0-34.0); MCHC 31.4 G/DL (30.0-36.0); MCV 92.8 FL (83-99); NRBC (%) 0.1 /100 WBC (0-0); PLATELET COUNT 207 K/uL (156-360); RBC DIS.WIDTH-CV 14.9 % (11.8-14.6); RBC DIS.WIDTH-SD 50.2 % (39-53); RED BLOOD COUNT 3.74 M/uL (3.80-5.20); WHITE BLOOD COUNT 14.5 K/uL (4.1-10.2)
[2017-10-02 06:48] LABS: ALBUMIN 3.7 G/DL (3.2-4.8); ALKALINE PHOSPHATASE 114 IU/L (3-129); ALT (GPT) 21 IU/L (3-49); AST (GOT) 40 IU/L (2-34); CHLORIDE 105 MEQ/L (99-109); CREATININE 0.8 MG/DL (0.6-1.3); GFR ESTIMATE (CALCULATED) > 59 mL/min/; GLUCOSE 105 mg/dL (70-99); POTASSIUM 4.4 MEQ/L (3.7-5.4); SODIUM 137 MEQ/L (136-147); TOTAL BILIRUBIN 1.1 MG/DL (0.0-1.0); UREA NITROGEN (BUN) 14 mg/dL (9-23)
[2017-10-02 08:27] VITALS: BP 103/68
[2017-10-02 15:48] VITALS: BP 125/79
[2017-10-02 19:52] LABS: HEMATOCRIT 33.7 % (36.0-46.0); HEMOGLOBIN 10.5 G/DL (11.9-15.5); MCH 28.6 PG (29.0-34.0); MCHC 31.2 G/DL (30.0-36.0); MCV 91.8 FL (83-99); PLATELET COUNT 216 K/uL (156-360); RBC DIS.WIDTH-CV 14.9 % (11.8-14.6); RBC DIS.WIDTH-SD 49.8 % (39-53); RED BLOOD COUNT 3.67 M/uL (3.80-5.20); WHITE BLOOD COUNT 17.2 K/uL (4.1-10.2)
[2017-10-02 20:06] VITALS: BP 100/69
[2017-10-02 22:29] VITALS: BP 122/77
[2017-10-03 06:35] LABS: HEMATOCRIT 34.2 % (36.0-46.0); HEMOGLOBIN 10.8 G/DL (11.9-15.5); MCH 29.1 PG (29.0-34.0); MCHC 31.6 G/DL (30.0-36.0); MCV 92.2 FL (83-99); PLATELET COUNT 255 K/uL (156-360); RBC DIS.WIDTH-CV 14.8 % (11.8-14.6); RBC DIS.WIDTH-SD 49.7 % (39-53); RED BLOOD COUNT 3.71 M/uL (3.80-5.20)
[2017-10-03 07:05] LABS: ALBUMIN 3.7 G/DL (3.2-4.8); ALT (GPT) 17 IU/L (3-49); AST (GOT) 26 IU/L (2-34); CHLORIDE 101 MEQ/L (99-109); GLUCOSE 93 mg/dL (70-99); POTASSIUM 4.9 MEQ/L (3.7-5.4); SODIUM 131 MEQ/L (136-147); TOTAL PROTEIN 6.1 G/DL (6.4-8.3)
[2017-10-03 07:07] LABS: UREA NITROGEN (BUN) 23 mg/dL (9-23)
[2017-10-03 07:08] LABS: ALKALINE PHOSPHATASE 146 IU/L (3-129); CREATININE 1.3 MG/DL (0.6-1.3); GFR ESTIMATE (CALCULATED) 46 mL/min/; TOTAL BILIRUBIN 1.7 MG/DL (0.0-1.0)
[2017-10-03 08:25] VITALS: BP 129/72
[2017-10-03 15:36] VITALS: BP 114/56
[2017-10-04 01:24] VITALS: BP 116/57
[2017-10-04 06:20] LABS: BASOPHIL (%) 0.1 % (0-1); EOSINOPHIL (%) 2.9 % (0-5); EOSINOPHIL COUNT 0.4 K/uL (0-0.3); HEMATOCRIT 26.5 % (36.0-46.0); IMMATURE GRANULOCYTE (%) 0.7 % (0.0-0.7); LYMPHOCYTE (%) 4.6 % (15-42); LYMPHOCYTE COUNT 0.6 K/uL (1.0-2.8); MCH 28.8 PG (29.0-34.0); MCHC 32.1 G/DL (30.0-36.0); MCV 89.8 FL (83-99); MONOCYTE (%) 4.7 % (3-12); MONOCYTE COUNT 0.6 K/uL (0-0.8); NEUTROPHIL COUNT 11.2 K/uL (1.8-6.4); PLATELET COUNT 206 K/uL (156-360); RBC DIS.WIDTH-CV 14.6 % (11.8-14.6); RBC DIS.WIDTH-SD 46.9 % (39-53); WHITE BLOOD COUNT 12.9 K/uL (4.1-10.2)
[2017-10-04 06:21] LABS: HEMOGLOBIN 8.5 G/DL (11.9-15.5); RED BLOOD COUNT 2.95 M/uL (3.80-5.20)
[2017-10-04 06:31] LABS: ALBUMIN 2.9 G/DL (3.2-4.8); ALKALINE PHOSPHATASE 142 IU/L (3-129); ALT (GPT) 11 IU/L (3-49); CHLORIDE 102 MEQ/L (99-109); CREATININE 0.9 MG/DL (0.6-1.3); GFR ESTIMATE (CALCULATED) > 59 mL/min/; GLUCOSE 98 mg/dL (70-99); POTASSIUM 4.2 MEQ/L (3.7-5.4); SODIUM 132 MEQ/L (136-147); TOTAL BILIRUBIN 1.6 MG/DL (0.0-1.0); UREA NITROGEN (BUN) 25 mg/dL (9-23)
[2017-10-04 06:32] LABS: AST (GOT) 14 IU/L (2-34); TOTAL PROTEIN 5.1 G/DL (6.4-8.3)
[2017-10-04 08:04] VITALS: BP 117/78
[2017-10-04 16:48] VITALS: BP 153/87
[2017-10-04 20:12] VITALS: BP 130/77
[2017-10-04 20:21] LABS: HEMATOCRIT 33.2 % (36.0-46.0); HEMOGLOBIN 10.5 G/DL (11.9-15.5)
[2017-10-04 23:54] VITALS: BP 132/79
[2017-10-05 06:13] LABS: HEMATOCRIT 27.5 % (36.0-46.0); HEMOGLOBIN 8.9 G/DL (11.9-15.5); MCH 28.5 PG (29.0-34.0); MCHC 32.4 G/DL (30.0-36.0); MCV 88.1 FL (83-99); PLATELET COUNT 258 K/uL (156-360); RBC DIS.WIDTH-CV 14.4 % (11.8-14.6); RBC DIS.WIDTH-SD 46.1 % (39-53); RED BLOOD COUNT 3.12 M/uL (3.80-5.20)
[2017-10-05 08:40] VITALS: BP 123/71
[2017-10-05 09:52] LABS: TYPE OF FLUID PARACENTESIS
[2017-10-05 10:39] LABS: APPEARANCE SLIGHTLY CLOUDY; BODY FLUID EOSINOPHILS 5 % (0-25); BODY FLUID RBC'S 12000 /MM^3 (0-100); BODY FLUID WBC'S 494 /MM^3 (0-500); MONONUCLEAR WBC'S 29 %; POLYNUCLEAR WBC'S 66 % (0-25)
[2017-10-05 13:06] LABS: BODY FLUID GLUCOSE 88 MG/DL; BODY FLUID LDH 630 IU/L; BODY FLUID PROTEIN < 3.0 G/DL
[2017-10-05 13:07] LABS: BODY FLUID AMYLASE < 10 U/L
[2017-10-05 15:14] LABS: ALBUMIN 2.3 G/DL (3.2-4.8)
[2017-10-05 19:20] LABS: HEMATOCRIT 24.5 % (36.0-46.0); HEMOGLOBIN 8.1 G/DL (11.9-15.5); MCV 87.5 FL (83-99)
[2017-10-06] VITALS: BP 126/72
[2017-10-06 06:46] LABS: HEMOGLOBIN 7.7 G/DL (11.9-15.5); MCV 88.6 FL (83-99)
[2017-10-06 06:55] LABS: PTT 25.5 SEC (25-37)
[2017-10-06 07:09] LABS: ALBUMIN 2.1 G/DL (3.2-4.8); ALKALINE PHOSPHATASE 141 IU/L (3-129); ALT (GPT) 9 IU/L (3-49); AST (GOT) 14 IU/L (2-34); TOTAL BILIRUBIN 1.5 MG/DL (0.0-1.0); TOTAL PROTEIN 4.4 G/DL (6.4-8.3)
[2017-10-06 07:16] LABS: DIRECT BILIRUBIN 0.9 mg/dL (0.0-0.3)
[2017-10-06 08:01] VITALS: BP 111/64
[2017-10-06 10:42] LABS: HEPATITIS C ANTIBODY Nonreactive
[2017-10-06 16:07] VITALS: BP 116/71
[2017-10-06 20:11] LABS: HEMOGLOBIN 10.1 G/DL (11.9-15.5); MCV 88.1 FL (83-99)
[2017-10-06 23:25] VITALS: BP 142/86
[2017-10-07 07:00] LABS: HEMATOCRIT 33.5 % (36.0-46.0); HEMOGLOBIN 10.6 G/DL (11.9-15.5); MCH 28.1 PG (29.0-34.0); MCHC 31.6 G/DL (30.0-36.0); MCV 88.9 FL (83-99); PLATELET COUNT 330 K/uL (156-360); RBC DIS.WIDTH-CV 14.9 % (11.8-14.6); RBC DIS.WIDTH-SD 48.2 % (39-53)
[2017-10-07 07:03] LABS: RED BLOOD COUNT 3.77 M/uL (3.80-5.20)
[2017-10-07 07:40] LABS: ALT (GPT) 11 IU/L (3-49); AST (GOT) 17 IU/L (2-34); CHLORIDE 101 MEQ/L (99-109); CREATININE 0.5 MG/DL (0.6-1.3); GFR ESTIMATE (CALCULATED) > 59 mL/min/; GLUCOSE 100 mg/dL (70-99); POTASSIUM 3.5 MEQ/L (3.7-5.4); PREALBUMIN 6.9 mg/dL (10-40); UREA NITROGEN (BUN) 9 mg/dL (9-23)
[2017-10-07 07:43] LABS: ALKALINE PHOSPHATASE 249 IU/L (3-129); SODIUM 139 MEQ/L (136-147); TOTAL PROTEIN 5.8 G/DL (6.4-8.3)
[2017-10-07 08:41] VITALS: BP 131/78
[2017-10-07 15:52] VITALS: BP 112/75
[2017-10-07 19:59] VITALS: BP 125/76
[2017-10-07 20:41] LABS: HEMATOCRIT 27.1 % (36.0-46.0); HEMOGLOBIN 8.7 G/DL (11.9-15.5)
[2017-10-08 00:33] VITALS: BP 124/76
[2017-10-08 03:48] VITALS: BP 118/76
[2017-10-08 07:04] LABS: HEMATOCRIT 30.2 % (36.0-46.0); HEMOGLOBIN 9.6 G/DL (11.9-15.5); MCH 28.4 PG (29.0-34.0); MCHC 31.8 G/DL (30.0-36.0); MCV 89.3 FL (83-99); PLATELET COUNT 312 K/uL (156-360); RBC DIS.WIDTH-CV 15.1 % (11.8-14.6); RBC DIS.WIDTH-SD 48.5 % (39-53); RED BLOOD COUNT 3.38 M/uL (3.80-5.20); WHITE BLOOD COUNT 7.2 K/uL (4.1-10.2)
[2017-10-08 07:25] VITALS: BP 114/75
[2017-10-08 07:54] LABS: ALBUMIN 2.5 G/DL (3.2-4.8); ALKALINE PHOSPHATASE 241 IU/L (3-129); ALT (GPT) 10 IU/L (3-49); AST (GOT) 13 IU/L (2-34); CHLORIDE 106 MEQ/L (99-109); CREATININE 0.5 MG/DL (0.6-1.3); GFR ESTIMATE (CALCULATED) > 59 mL/min/; GLUCOSE 103 mg/dL (70-99); SODIUM 137 MEQ/L (136-147); TOTAL BILIRUBIN 1.6 MG/DL (0.0-1.0); UREA NITROGEN (BUN) 8 mg/dL (9-23)
[2017-10-08 08:06] LABS: POTASSIUM 4.4 MEQ/L (3.7-5.4); TOTAL PROTEIN 4.9 G/DL (6.4-8.3)
[2017-10-08 15:21] VITALS: BP 116/76
[2017-10-08 19:59] LABS: BODY FLUID RBC'S 15000 /MM^3 (0-100); BODY FLUID WBC'S 274 /MM^3 (0-500)
[2017-10-08 20:02] VITALS: BP 115/72
[2017-10-08 20:24] LABS: HEMOGLOBIN 9.7 G/DL (11.9-15.5); MCV 90.4 FL (83-99)
[2017-10-08 20:42] LABS: BODY FLUID EOSINOPHILS 5 % (0-25); MONONUCLEAR WBC'S 80 %; POLYNUCLEAR WBC'S 15 % (0-25)
[2017-10-08 21:13] LABS: BODY FLUID GLUCOSE 88 MG/DL; BODY FLUID LDH 339 IU/L
[2017-10-08 21:14] LABS: BODY FLUID PROTEIN < 3.0 G/DL
[2017-10-09 00:17] VITALS: BP 105/67
[2017-10-09 04:20] VITALS: BP 119/72
[2017-10-09 06:04] LABS: HEMATOCRIT 33.7 % (36.0-46.0); HEMOGLOBIN 10.4 G/DL (11.9-15.5); MCHC 30.9 G/DL (30.0-36.0); MCV 90.6 FL (83-99); PLATELET COUNT 381 K/uL (156-360); RBC DIS.WIDTH-CV 15.2 % (11.8-14.6); RBC DIS.WIDTH-SD 50.4 % (39-53); RED BLOOD COUNT 3.72 M/uL (3.80-5.20); WHITE BLOOD COUNT 7.5 K/uL (4.1-10.2)
[2017-10-09 06:28] LABS: ALBUMIN 2.6 G/DL (3.2-4.8); ALKALINE PHOSPHATASE 285 IU/L (3-129); ALT (GPT) 10 IU/L (3-49); AST (GOT) 17 IU/L (2-34); CHLORIDE 105 MEQ/L (99-109); CREATININE 0.6 MG/DL (0.6-1.3); GFR ESTIMATE (CALCULATED) > 59 mL/min/; GLUCOSE 110 mg/dL (70-99); LACTATE DEHYDROGENASE 232 IU/L (20-246); POTASSIUM 4.2 MEQ/L (3.7-5.4); SODIUM 137 MEQ/L (136-147); TOTAL BILIRUBIN 1.4 MG/DL (0.0-1.0); TOTAL PROTEIN 5.3 G/DL (6.4-8.3); UREA NITROGEN (BUN) 8 mg/dL (9-23)
[2017-10-09 07:20] VITALS: BP 109/74
[2017-10-09 11:29] VITALS: BP 133/75
[2017-10-09 15:09] VITALS: BP 109/70
[2017-10-09 15:25] LABS: BODY FLUID PH 7.9 (())
[2017-10-09 23:46] VITALS: BP 124/65
[2017-10-10 07:37] VITALS: BP 114/73
[2017-10-10 08:20] LABS: ALBUMIN 2.2 G/DL (3.2-4.8); ALKALINE PHOSPHATASE 241 IU/L (3-129); ALT (GPT) 9 IU/L (3-49); AST (GOT) 14 IU/L (2-34); DIRECT BILIRUBIN 0.7 mg/dL (0.0-0.3); TOTAL BILIRUBIN 1.2 MG/DL (0.0-1.0); TOTAL PROTEIN 4.7 G/DL (6.4-8.3)
[2017-10-10 15:50] VITALS: BP 113/70
[2017-10-10 23:45] VITALS: BP 118/72
[2017-10-11 07:10] LABS: ALBUMIN 2.4 G/DL (3.2-4.8); ALKALINE PHOSPHATASE 278 IU/L (3-129); ALT (GPT) 9 IU/L (3-49); AST (GOT) 14 IU/L (2-34); DIRECT BILIRUBIN 0.6 mg/dL (0.0-0.3); TOTAL BILIRUBIN 1.1 MG/DL (0.0-1.0); TOTAL PROTEIN 4.7 G/DL (6.4-8.3)
[2017-10-11 07:22] VITALS: BP 109/67
[2017-10-11 12:35] VITALS: BP 110/73
== END 2017-10-11 13:22 | disposition short-term general hospital (02) | DRG 347 ==
LOC: EME 20:48 → 2EAST 09-27 02:29 → EDOF 09-27 02:29 → ENRESERV 09-27 02:44 → 2EAST 09-27 03:59
PROVIDERS: Hospitalist; Internal Medicine; Physician Assistant; Physician Assistant Surgical; Radiology Diagnostic Radiology; Specialist
DX: K28.4 Chronic or unspecified gastrojejunal ulcer with hemorrhage (principal); K65.2 Spontaneous bacterial peritonitis; K80.00 Calculus of gallbladder with acute cholecystitis without obstruction; R18.8 Other ascites; D62 Acute posthemorrhagic anemia; K56.7 Ileus, unspecified; K80.10 Calculus of gallbladder with chronic cholecystitis without obstruction; E46 Unspecified protein-calorie malnutrition; K44.9 Diaphragmatic hernia without obstruction or gangrene; Z91.19 Patient's noncompliance with other medical treatment and regimen; Z98.84 Bariatric surgery status; M19.90 Unspecified osteoarthritis, unspecified site; K60.2 Anal fissure, unspecified; R26.9 Unspecified abnormalities of gait and mobility; E53.8 Deficiency of other specified B group vitamins; E58 Dietary calcium deficiency; K76.0 Fatty (change of) liver, not elsewhere classified; M48.00 Spinal stenosis, site unspecified; G56.00 Carpal tunnel syndrome, unspecified upper limb; Q89.9 Congenital malformation, unspecified; K25.4 Chronic or unspecified gastric ulcer with hemorrhage; D50.0 Iron deficiency anemia secondary to blood loss (chronic); K29.70 Gastritis, unspecified, without bleeding; K59.00 Constipation, unspecified; M54.9 Dorsalgia, unspecified; I10 Essential (primary) hypertension; K60.3 Anal fistula; G25.81 Restless legs syndrome; D63.8 Anemia in other chronic diseases classified elsewhere; M41.9 Scoliosis, unspecified; K21.9 Gastro-esophageal reflux disease without esophagitis; F41.9 Anxiety disorder, unspecified; M54.2 Cervicalgia; E05.90 Thyrotoxicosis, unspecified without thyrotoxic crisis or storm; M25.561 Pain in right knee; F17.210 Nicotine dependence, cigarettes, uncomplicated; G89.4 Chronic pain syndrome; R60.0 Localized edema; E88.09 Other disorders of plasma-protein metabolism, not elsewhere classified; F32.9 Major depressive disorder, single episode, unspecified; E03.9 Hypothyroidism, unspecified; E66.9 Obesity, unspecified
CPT/HCPCS: 32557; 49083; 74019; 74176; 74177; 74181; 76705; 78226; 78227; 80048; 80053; 80076; 81003; 82040; 82150 91; 82247; 82607; 82728; 82746; 82945; 83540; 83615; 83615 91; 83690; 83986 90; 84134; 84157; 84466; 84702; 85014; 85018; 85025; 85027; 85610; 85730; 86256 90; 86803; 86850; 86900; 86901; 86920; 87070; 87075; 87177; 87205; 87329; 87493; 88108; 88304; 88305; 89051; 93975; 99281; 99285; A9537; C1729; C1769; C9113; J0131; J0330; J0360; J0744; J1100; J1170; J1885; J1956; J2060; J2250; J2270; J2405; J2543; J2710; J3010; J3420; J7030; J7050; J7643; S0030; S0074